=== PATIENT | male | born 1990 | race Caucasian/White ===

== ENCOUNTER 2019-07-10 09:26 | Emergency (ER) | payer SELFPAY ==
[~2019-07-10] VITALS: Ht 175.3 cm; Wt 64.9 kg
[2019-07-10 09:43] VITALS: BP 142/87
== END 2019-07-10 09:58 | disposition home or self-care (01) ==
LOC: ER 09:28
DX: B34.9 Viral infection, unspecified (principal); Z60.2 Problems related to living alone